=== PATIENT | male | born 1950 | race Caucasian/White ===

== ENCOUNTER 2020-07-20 17:06 | Emergency (ER) | payer MEDICARE ==
[~2020-07-20 17:06] MED LIST: ASPIRIN EC81 MG PO; COZAAR100 MG PO; CRESTOR10 MG PO; EUTHYROX112 MCG PO; HEPARIN 3010 UNIT/1 IV; ISOSORBIDE MONO60 MG PO; METFORMIN HCL500 MG PO; NOVOLOG VI100 UNIT/1 SC; TOPROL XL25 MG PO; TRESIBA100 UNIT/1 SC; VANCOMYCIN1.5 GM/15 IV
[2020-07-20 18:19] LABS: BASOPHIL 0.4 % (0-2); EOSINOPHIL 0.1 % (0-7); HCT 41.2 % (42.0-52.0); LYMPHOCYTE 7.1 % (15-48); MCH 30.9 pg (25.0-31.0); MCV 90.9 fL (78.0-100.0); MONOCYTE 2.9 % (0-12); MPV 10.5 fL (6.0-9.5); NEUTROPHIL 89.3 % (41-80); NRBC 0; PLT 284 K/uL (150-400); RBC 4.53 M/uL (4.70-6.00); RDW 13.2 % (11.5-14.0)
[2020-07-20 18:38] LABS: BILIRUBIN - TOTAL 0.8 mg/dL (0.2-1.0); BUN/CREAT RATIO (CALC) 22.7 RATIO; CREATININE 1.19 mg/dL (0.67-1.17); POTASSIUM 4.2 mmol/L (3.5-5.1)
== END 2020-07-20 21:43 | disposition home or self-care (01) ==
LOC: FER 17:06
PROVIDERS: Nurse Practitioner Family
DX: R11.2 Nausea with vomiting, unspecified (principal); R55 Syncope and collapse; E11.9 Type 2 diabetes mellitus without complications; I10 Essential (primary) hypertension; J44.9 Chronic obstructive pulmonary disease, unspecified; Z87.442 Personal history of urinary calculi; Z88.5 Allergy status to narcotic agent
CPT/HCPCS: 36415; 70450; 80053; 84484; 85025; J2405; J7030

== ENCOUNTER 2020-11-09 12:18 | Emergency (ER) | payer MEDICARE ==
[2020-11-09 13:19] LABS: EOSINOPHIL 2.3 % (0-7); HCT 41.5 % (42.0-52.0); HGB 13.6 g/dl (13.2-18.0); LYMPHOCYTE 16.9 % (15-48); MCHC 32.8 g/dL (32.0-36.0); MCV 91.4 fL (78.0-100.0); MONOCYTE 5.4 % (0-12); MPV 10.6 fL (6.0-9.5); NEUTROPHIL 74.1 % (41-80); NRBC 0; PLT 256 K/uL (150-400); RBC 4.54 M/uL (4.70-6.00); RDW 13.7 % (11.5-14.0); WBC 9.4 K/uL (4.0-10.5)
[2020-11-09 13:23] LABS: INR 0.98 (0.9-1.2); PROTHROMBIN TIME 12.4 SECONDS (11.8-13.4); PTT 24.7 SECONDS (24.4-34.7)
[2020-11-09 13:33] LABS: ALBUMIN 3.9 g/dL (3.4-5.0); BILIRUBIN - TOTAL 0.5 mg/dL (0.2-1.0); BUN/CREAT RATIO (CALC) 15.4 RATIO; CREATININE 1.17 mg/dL (0.67-1.17); GLOBULIN (CALCULATION) 3.4 g/dL; POTASSIUM 3.5 mmol/L (3.5-5.1); TOTAL PROTEIN 7.3 g/dL (6.4-8.2)
[2020-11-09 16:10] LABS: BILIRUBIN NEGATIVE (NEGATIVE); BLOOD NEGATIVE Ery/uL (NEGATIVE); CLARITY CLEAR (CLEAR); COLOR YELLOW (YELLOW); GLUCOSE (U) NORMAL (NORMAL); LEUKOCYTES NEGATIVE Leu/uL (NEGATIVE); NITRITE NEGATIVE (NEGATIVE); PROTEIN NEGATIVE (NEGATIVE); SPECIFIC GRAVITY 1.025 (1.001-1.030); UROBILINOGEN 0.2 mg/dL (0.2-1.0)
== END 2020-11-09 19:05 | disposition other institution (70) ==
LOC: FER 12:18
PROVIDERS: Emergency Medicine
DX: I20.0 Unstable angina (principal); E11.9 Type 2 diabetes mellitus without complications; I10 Essential (primary) hypertension; E78.5 Hyperlipidemia, unspecified
CPT/HCPCS: 36415; 71045; 80053; 81001; 84484; 85025; 85610; 85730; 93005